=== PATIENT | female | born 1940 | race Caucasian/White ===

== ENCOUNTER → 2017-10-30 | Outpatient (CLI) | payer MEDICARE ==
[~2017-10-30] MED LIST: ASCO500 PO; ASPI81EC PO; CALCAVITD PO; ESOM20 PO; EZET10-20 PO; FISH1000 PO; GLUCHON PO; Hair, Skin & N1 EACH PO; TOLT4 PO
[2017-11-01 13:13] LABS: HPV Genotype 16 Not Detected (NOTDET); HPV Genotype 18 Not Detected (NOTDET); HPV High Risk Other Not Detected (NOTDET)
== END | disposition home or self-care (01) ==
LOC: LAB 16:44
PROVIDERS: Obstetrics & Gynecology
DX: Z01.419 Encounter for gynecological examination (general) (routine) without abnormal findings (principal)
CPT/HCPCS: 87624; G0123

== ENCOUNTER → 2019-02-25 | Outpatient (CLI) | payer MEDICARE | END | disposition home or self-care (01) | LOC: PLD 08:05 → LAB SHORT 08:05 | DX: C44.329 Squamous cell carcinoma of skin of other parts of face (principal); D04.4 Carcinoma in situ of skin of scalp and neck | CPT/HCPCS: 88305 ==

== ENCOUNTER → 2019-04-08 | Outpatient (CLI) | payer MEDICARE | END | disposition home or self-care (01) | LOC: PLD 14:25 → LAB SHORT 14:25 | DX: L57.8 Other skin changes due to chronic exposure to nonionizing radiation (principal); L08.89 Other specified local infections of the skin and subcutaneous tissue | CPT/HCPCS: 88305 ==

== ENCOUNTER → 2019-10-21 | Outpatient (CLI) | payer MEDICARE | END | disposition home or self-care (01) | LOC: LAB SHORT 15:17 → PLD 15:17 | DX: L57.0 Actinic keratosis (principal) | CPT/HCPCS: 88305 ==

== ENCOUNTER 2023-04-14 19:54 | Emergency (ER) | payer OTHER, MEDICARE ==
[~2023-04-14] VITALS: Ht 160 cm; Wt 81.7 kg
[2023-04-14 22:38] LABS: BASOPHILS ABSOLUTE AUTO 0.03 K/mm3 (0.00-0.23); BASOPHILS PERCENT AUTO 0 % (0-2); EOSINOPHILS ABSOLUTE AUTO 0.02 K/mm3 (0.00-0.68); EOSINOPHILS PERCENT AUTO 0 % (0-6); Hematocrit 36.6 % (33.0-51.0); Hemoglobin 12.1 g/dL (11.5-16.0); IMMATURE GRAN ABSOLUTE AUTO 0.02 K/mm3 (0.00-0.10); IMMATURE GRAN PERCENT AUTO 0 % (0-1); LYMPHOCYTES ABSOLUTE AUTO 1.37 K/mm3 (0.84-5.20); LYMPHOCYTES PERCENT AUTO 17 % (21-46); MONOCYTES ABSOLUTE AUTO 0.84 K/mm3 (0.16-1.47); MONOCYTES PERCENT AUTO 10 % (4-13); Mean Corpuscular HGB 31.2 pg (26.0-34.0); Mean Corpuscular HGB Conc 33.1 g/dL (31.5-36.5); Mean Corpuscular Volume 94 fL (80-100); Mean Platelet Volume 10.8 fL (9.1-12.4); NEUTROPHILS ABSOLUTE AUTO 5.92 K/mm3 (1.96-9.15); NEUTROPHILS PERCENT AUTO 72 % (41-73); Platelet Count 177 K/mm3 (150-400); RDW Coefficient Variation 12.1 % (11.7-14.2); RDW Standard Deviation 42.4 fL (35.1-46.3); Red Blood Cell Count 3.88 M/mm3 (3.80-5.20)
[2023-04-14 22:50] LABS: Albumin, Blood 3.8 g/dL (3.4-5.0); Albumin/Globulin Ratio 1.3 (0.8-1.8); Bilirubin, Total 0.5 mg/dL (0.1-1.0); Bun/Creatinine Ratio 19.5 (12.0-20.0); Creatinine, Blood 0.72 mg/dL (0.40-1.00); Globulin, Blood 2.9 g/dL (2.2-4.0); Potassium, Blood 3.7 mmol/L (3.5-5.5); Total Protein, Blood 6.7 g/dL (6.4-8.2)
[2023-04-14 23:46] LABS: Source, Urine Straight Cath
[2023-04-14] MEDS ORDERED: MOXIFLOXACIN LEFTEYE (23:47)
[2023-04-14] MEDS ORDERED: BROMFENAC SODI1.7 ML BOTHEYES (23:48)
[2023-04-14] MEDS ORDERED: ZOCOR20 MG (23:48)
[2023-04-14] MEDS ORDERED: Aspir 8181 MG PO (23:48)
[2023-04-14 23:51] LABS: Bilirubin, Urine Neg (Neg); Blood, Urine 1+ (Neg); Glucose Qualitative, Urine Neg (Neg); Ketones, Urine Neg (Neg); Leukocyte Esterase, Urine Neg (Neg); Nitrite, Urine Neg (Neg); Protein, Urine Neg (Neg); Urobilinogen, Urine NORM (Normal); pH, Urine 6.5 (5.0-8.0)
[2023-04-14 23:58] LABS: Appearance, Urine Clear (Clear); Color, Urine Yellow (P-Yellow)
[2023-04-14 23:59] LABS: Bacteria Not Seen /hpf; Red Blood Cells, Urine 0-2 /hpf (0-2); Squamous Epithelial Cells Not Seen /hpf (Few); Transitional Epithelial Cells Few /hpf (0-Rare); White Blood Cells, Urine 0-2 /hpf (0-5)
[2023-04-15 00:30] VITALS: BP 163/67
== END 2023-04-15 01:00 | disposition home or self-care (01) ==
LOC: ER 19:54
PROVIDERS: Emergency Medicine; Student in an Organized Health Care Education/Training Program
DX: S20.212A Contusion of left front wall of thorax, initial encounter (principal); S00.11XA Contusion of right eyelid and periocular area, initial encounter; V43.52XA Car driver injured in collision with other type car in traffic accident, initial encounter; R41.82 Altered mental status, unspecified; Z79.899 Other long term (current) drug therapy; Z79.82 Long term (current) use of aspirin
CPT/HCPCS: 51701; 70450; 80053; 81001; 85025; 93005; 93010; 99285-25